=== PATIENT | female | born 1945 | race Caucasian/White ===

== ENCOUNTER 2022-06-27 02:39 | Emergency (ER) | payer MEDICARE ==
[~2022-06-27] VITALS: Ht 154.9 cm; Wt 63.5 kg
[2022-06-27 02:45] VITALS: BP_SYST 202
--- NOTE | 2022-06-27 02:48 | NUR ---
PATIENT STATES SHE HAS BEEN HAVING GENERAL WEAKNESS X 1 HOUR. PATIENT IS A/OX4 BUT IS ADAMENT THAT SHE WANTED TO GO TO [place] AFTER REQUESTING [place]. NO CURRENT COMPLAINTS AT THIS TIME.
--- NOTE | 2022-06-27 03:05 | NUR ---
PATIENT BROUGHT TO ROOM 5 FOR EVAL, REPORT GIVEN TO STEPHANY ZAPATA.
--- NOTE | 2022-06-27 03:15 | NUR ---
DIONISIO Kern at bedside examining patient.
[2022-06-27 03:48] LABS: BASOPHILS # (AUTO) 0.1 K/uL (0.0-0.2); BASOPHILS % (AUTO) 0.7 % (0.0-2.0); EOSINOPHILS % (AUTO) 0.4 % (0.0-4.0); HEMATOCRIT 39.5 % (36-48); HEMOGLOBIN 13.6 g/dL (12.0-16.0); LYMPHOCYTES # (AUTO) 0.8 K/uL (1.0-5.5); LYMPHOCYTES % (AUTO) 10.6 % (20.5-51.5); MEAN CORPUSCULAR HEMOGLOBIN 30 pg (27-31); MEAN CORPUSCULAR HGB CONC 35 % (32-36); MEAN CORPUSCULAR VOLUME 86 fL (79.0-98.0); MONOCYTES # (AUTO) 0.4 K/uL (0.0-1.0); MONOCYTES % (AUTO) 5.8 % (1.7-9.3); NEUTROPHILS # (AUTO) 6.4 K/uL (1.8-7.7); NEUTROPHILS % (AUTO) 82.5 % (40.0-70.0); PLATELET COUNT (AUTO) 156 K/uL (130-430); RED BLOOD CELL COUNT(AUTO) 4.59 MIL/uL (4.2-6.2); RED CELL DISTRIBUTION WIDTH 13.7 % (9.0-15.0); WHITE BLOOD COUNT (AUTO) 7.8 K/uL (4.8-10.8)
[2022-06-27 04:29] LABS: INR 0.9 (0.8-1.2); PROTHROMBIN TIME 9.3 SECS (9.5-12.5)
[2022-06-27 04:35] LABS: ALANINE AMINOTRANSFERASE 22 U/L (12-78); ALBUMIN 3.9 g/dL (3.4-4.8); ANION GAP 4 (5-15); ASPARTATE AMINOTRANSFERASE 24 U/L (10-37); CALCIUM 9.1 mg/dL (8.4-11.0); CHLORIDE 102 mmol/L (98-107); CREATININE 0.87 mg/dL (0.55-1.30); GLUCOSE 142 mg/dL (70-99); POTASSIUM 3.8 mmol/L (3.5-5.1); TOTAL BILIRUBIN 0.4 mg/dL (0.0-1.0); UREA NITROGEN, BLOOD 24 mg/dL (8-21)
[2022-06-27 06:15] LABS: ACETAMINOPHEN < 1 ug/mL (1-30); ALCOHOL, BLOOD < 3 mg/dL (<10)
[2022-06-27 06:16] LABS: BARBITURATE, URINE NEGATIVE (NEG <=200); BENZODIAZEPINE, URINE NEGATIVE (NEG <=150); CANNABINOID, URINE NEGATIVE (NEG <=50); COCAINE, URINE NEGATIVE (NEG <=150); METHAMPHETAMINES SCREEN,URINE NEGATIVE (NEG <=500); OPIATE, URINE NEGATIVE (NEG <=100); PHENCYCLIDINE SCREEN,URINE NEGATIVE (NEG <=25); UR TRICYCLIC ANTIDEPRESSANTS NEGATIVE (NEG <=300); URINE AMPHETAMINE NEGATIVE (NEG <=500); URINE METHADONE NEGATIVE (NEG <=200); URINE OXYCODONE SCREEN NEGATIVE (NEG <=100); URINE PROPOXYPHENE SCREEN NEGATIVE (NEG <=300)
--- NOTE | 2022-06-27 06:16 | NUR ---
COVID AND MRSA SWABS COLLECTED AND SENT TO LAB.
[2022-06-27] MEDS ORDERED: iohexoL 350 mgI/mL, 100 ML INFUS..BTL IV ONE (07:13)
--- NOTE | 2022-06-27 07:39 | NUR ---
REPORT RECEIVED, CARE ASSUMED, PT ASSESSED. IV STARTED IN L FA WITH 20G ANGIO WITHOUT DIFF, FLUSHES EASILY, GOOD BLOOD RETURN. PT ALERT AND OREINTED RESP EASY, MM PINK. STATES UPPER R ARM WEAKNESS AND DECREASED MOVEMENT THAT COMES AND GOES FOR THE PAST 6 MONTHS
[2022-06-27] MEDS ORDERED: levETIRAcetam 500 MG TABLET PO ONE (09:15)
--- NOTE | 2022-06-27 09:55 | NUR ---
CALL PLACED TO FAMILY PEGGY SONG AT [phone] DONATO IS SPEAKING WITH HER
--- NOTE | 2022-06-27 10:23 | NUR ---
SPOKE WITH DAUGHTER PEGGY SONG AND SHE WILL BE COMING TO [facility] PT.
--- NOTE | 2022-06-27 10:42 | NUR ---
PT REFUSED TORADOL.
[2022-06-27 10:43] VITALS: BP_SYST 136
[2022-06-27] MEDS ORDERED: KETOROLAC TROMETHAMINE 30 MG VIAL IM ONE (10:45)
--- NOTE | 2022-06-27 10:46 | NUR ---
Patient given written and verbal discharge instructions and verbalizes understanding. ER MD discussed with patient the results and treatment provided. Patient in stable condition. ID arm band removed. IV catheter removed intact and dressing applied, no active bleeding. Patient educated on pain management and to follow up with PMD. Pain Scale . Opportunity for questions provided and answered. Medication side effect fact sheet provided.
== END 2022-06-27 10:46 ==
LOC: SED 02:39
DX: R53.1 Weakness (principal); Z91.040 Latex allergy status; Z79.899 Other long term (current) drug therapy; Z20.822 Contact with and (suspected) exposure to COVID-19
CPT/HCPCS: 99285; 70496; 71045; 87426; 80307; 80053; 85025; 85610; 85730; 87081; 84484; 36415; 93005; 70498; 83605; 87040; 70450; 76376; G0482; Q9967; G0480; G0481